=== PATIENT | female | born 1930 | race Caucasian/White ===

== ENCOUNTER 2017-11-04 20:19 | Emergency (ER) | payer MEDICARE, MEDICAID ==
[~2017-11-04] VITALS: Ht 154.9 cm; Wt 62.1 kg
[~2017-11-04 20:19] MED LIST: ASPIRIN325 PO; BENAZEPRIL-HCT1 EA10 PO; CLONAZEPAM 1 MG1 M1 PO; CYCLOBENZAPRINE5 MG PO; HYDROCODONE-APA1 TA1 PO; IMDUR 30 MG TAB30 M1 PO; KLOR-CON 1010 MEQ PO; LASIX 20 MG TAB20 MG PO; LEVOTHYROXIN0.075 MG PO; LEVOTHYROXINE 0.1 MG PO; LOPRESSOR25 PO; MOTION SICKNESS25 M1 PO; NITROGLYCERIN0.4 MG SUBLING; NORVASC5 MG PO; PROBENECID500 MG PO; SORINE 80 MG TA80 M1 PO
[2017-11-04 20:29] VITALS: BP 169/83
[2017-11-04] MEDS ORDERED: SYNTHROID75 MCG PO (20:33)
[2017-11-04] MEDS ORDERED: HYDROCODONE-AP1 EAC6 PO (20:49)
[2017-11-04] MEDS ORDERED: KEFLEX500 M1 PO (20:49)
== END 2017-11-04 20:59 | disposition home or self-care (01) ==
LOC: M.ERS 20:19
DX: L60.8 Other nail disorders (principal); I10 Essential (primary) hypertension; E03.9 Hypothyroidism, unspecified; I25.2 Old myocardial infarction; Z90.710 Acquired absence of both cervix and uterus; Z88.8 Allergy status to other drugs, medicaments and biological substances

== ENCOUNTER 2018-02-01 13:48 | Inpatient (IN) | payer MEDICARE, MEDICAID ==
[~2018-02-01] VITALS: Ht 162.6 cm; Wt 69.8 kg
[~2018-02-01 13:48] MED LIST changes: +HYDROCODONE-AP1 EAC6 PO; +KEFLEX500 M1 PO; +SYNTHROID75 MCG PO
[2018-02-01 13:52] VITALS: BP 202/98
[2018-02-01 15:59] LABS: HEMATOCRIT 32.8 % (37.0-47.0); HEMOGLOBIN 10.6 gm/dL (12.0-15.0); MCH 30.1 pg (26.0-34.0); MCHC 32.3 g/dL (28.0-37.0); MCV 93.2 fL (80.0-100.0); MPV 7.6 fl. (7.2-11.1); NUCLEATED RBCS 0 /100WBC; PLATELET COUNT* 306 thou/uL (150-400); RBC 3.52 mil/uL (4.20-5.00); RDW-CV 15.1 % (10.5-14.5); WBC 13.5 thou/uL (4.0-11.0)
[2018-02-01 16:13] LABS: ABSOLUTE BASOPHILS 0.1 thou/uL (0.0-0.2); ABSOLUTE EOSINOPHILS 0.4 thou/uL (0.0-0.7); ABSOLUTE LYMPHOCYTES 1.2 thou/uL (0.8-5.3); ABSOLUTE MONOCYTES 0.4 thou/uL (0.0-1.2); ABSOLUTE NEUTROPHILS 11.3 thou/uL (1.6-8.1); PLATELET ESTIMATE ADEQUATE
[2018-02-01 16:17] LABS: CALCIUM 8.7 mg/dL (8.5-10.1); CREATININE 1.2 mg/dL (0.6-1.3); POTASSIUM 5.2 mmol/L (3.5-5.1)
[2018-02-01 16:22] LABS: ALBUMIN 3.1 g/dL (3.4-5.0); TOTAL BILIRUBIN 0.2 mg/dL (<0.1-1.0); TOTAL PROTEIN 6.1 g/dL (6.4-8.2)
[2018-02-01 18:06] VITALS: BP 108/61
[2018-02-01 18:30] VITALS: BP 85/47
[2018-02-01 20:00] VITALS: BP 90/47
[2018-02-02 00:19] VITALS: BP 111/71
--- NOTE | 2018-02-02 02:32 | NUR ---
ASSUMED CARE AT 1999, ASSESSMENT CHARTED. PATIENT ALERT/ORIENTED X4, RESTING IN BED. ON TELE, SR. ON ROOM AIR, NO SOB NOTED, SATS 93%. SL INTACT TO RIGHT AC, LEAKING, REMOVED WITH CATHETER INTACT. NEW IV STARTED TO RIGHT FOREARM, IVF INFUSING PER MAR. HORNER TO DD. DENIES NEEDS. STATES HAVING PAIN TO LEFT SIDE, MEDS PER MAR WITH PARTIAL RELIEF NOTED. BEDREST. NPO AFTER MIDNIGHT. PATIENT TURNED AND REPOSITIONED IN BED WITH PILLOWS Q2H. SCD PLACED TO RIGHT LEG. BED ALARM ON. CALL LIGHT WITHIN REACH, ENCOURAGED TO CALL FOR NEEDS.
[2018-02-02 03:52] VITALS: BP 115/61
[2018-02-02 05:10] LABS: HEMATOCRIT 24.8 % (37.0-47.0); MCH 30.5 pg (26.0-34.0); MCV 92.4 fL (80.0-100.0); MPV 7.9 fl. (7.2-11.1); RBC 2.69 mil/uL (4.20-5.00); RDW-CV 14.8 % (10.5-14.5); WBC 11.9 thou/uL (4.0-11.0)
[2018-02-02 05:19] LABS: APTT 26.1 Seconds (25.0-31.3); INR 1.2; PROTIME 12.1 Seconds (9.20-11.50)
[2018-02-02 05:23] LABS: HEMOGLOBIN 8.2 gm/dL (12.0-15.0)
[2018-02-02 06:14] LABS: ALBUMIN 2.8 g/dL (3.4-5.0); CALCIUM 8.2 mg/dL (8.5-10.1); CREATININE 1.4 mg/dL (0.6-1.3); MAGNESIUM 2.2 mg/dL (1.8-2.4); POTASSIUM 5.3 mmol/L (3.5-5.1); TOTAL BILIRUBIN 0.3 mg/dL (<0.1-1.0); TOTAL PROTEIN 5.5 g/dL (6.4-8.2)
--- NOTE | 2018-02-02 07:52 | NUR ---
DR. TAN IN ROOM TO SEE PATIENT. REPORT GIVEN TO ONCOMING NURSE. BED ALARM ON. WILL MONITOR.
[2018-02-02 08:00] VITALS: BP 128/66
--- NOTE | 2018-02-02 10:07 | EKG ---
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: AM : 1930 Requested By: Lizbeth Harrison Order Number: [id number] MD: Eliel Acharya Measurements Intervals [place] Rate: 76 P: 10 NC: 156 QRS: -21 QRSD: 109 T: 89 QT: 414 QTc: 466 Interpretive Statements Sinus rhythm nonspecific st changes Compared to ECG 04/02/2017 07:52:46 Left ventricular hypertrophy no longer present Electronically Signed On 02-02-2018 10:06:50 CDT by Elile Acharya [email or web address] <ELECTRONICALLY SIGNED> By: Eliel Acharya MD, [facility] 02/02/18 1006 1558 1558 Eliel Acharya MD, [facility] /EPI
--- NOTE | 2018-02-02 12:03 | NUR ---
Pt out of room for surgery, will f/u later
--- NOTE | 2018-02-02 13:58 | NUR ---
ASSUMED PT CARE AT 0700 PT IS ALERT AND ORIENTED X 4 PT IS A FALL RISK BED ALARM IS ON, PT DENIES PAIN OR SOA, PT LEFT ARM AND LEG IS SPLINTED PT IS SCHEDULED FOR SURGERY PT ANXIOUS ABOUT SURGERY ONCE PHYSICIAN TALKED WITH PT SHE WAS MORE WILLING TO HAVE SURGERY PT HAS 1 UNIT OF BLOOD ORDERED TO START BEFORE SURGERY OBTAINED CONSENT AND ONTAINED BLOOD FROM BLOOD BANK HAD ANOTHER NURSE CHECK BLOOD AND DOCUMENTATION SURGERY CAME FOR PT AND STARTED BLOOD DOWN IN PACU, WILL CONTINUE TO MONITOR
[2018-02-02 14:51] VITALS: BP 105/68; BP 116/78; BP 117/73; BP 118/74; BP 153/73
--- NOTE | 2018-02-02 17:01 | CON ---
[address] [address] CONSULTATION Name: TORIN GARZA Room: [address] IN M.R.#: [id number] Admission: 02/01/18 Attend Phys: Vince Curry Discharge: Date of : [birth year] Report #: [id number] THIS REPORT FOR: //name// CC: Lobo Baker [facility] physician/PCP Colin Rizzo DATE OF SERVICE: 02/02/2018 HISTORY OF PRESENT ILLNESS: The patient is an 87-year-old white female who I was asked to see in the hospital today for preoperative evaluation. I initially saw the patient in March 2017. She has a long history of a heart murmur, previously followed at [facility]. She apparently had a heart catheterization and was found to have mild coronary artery disease with evidence of aortic stenosis. She apparently has refused aortic valve replacement in the past. However, she is not very active because of her age and uses a walker. She was actually admitted to [facility] in March 2017, with palpitations and found to be in a narrow complex tachycardia. She did have an echocardiogram in March 2017, that showed left ventricular hypertrophy, ejection fraction greater than 60%, evidence of severe aortic stenosis with a peak gradient across the aortic valve of 68 mmHg. However, she was not felt to be an operative candidate because of her advanced age. She actually returned to see my nurse practitioner in November 2017. The patient noted occasional lightheadedness. The patient denied any recent shortness of breath, palpitations, or syncope. She does have occasional chest pain. Yesterday, the patient was at home when she fell, apparently tripped on the carpet. She then struck the left side of her face and body in the shower. She was brought here to [facility]. She was found to have a fracture of her left arm and left leg. She is in need of surgery. I was asked to see her for preoperative evaluation. PAST MEDICAL HISTORY: Significant for hysterectomy, cataract extraction, and hypertension. CURRENT MEDICATIONS: Consists of aspirin, Flexeril, Lasix, hydrocodone, Imdur, Synthroid, meclizine, potassium, sotalol, and Lotensin. ALLERGIES: She has a previous intolerance to QUININE. FAMILY HISTORY: Her mother had a heart attack. SOCIAL HISTORY: She is , lives with son in [place]. No smoking or alcohol abuse. REVIEW OF SYSTEMS: She has had no history of stroke, asthma, peptic ulcer disease, liver disease. She has chronic kidney disease. [place] [address] CONSULTATION Name: TORIN GARZA Room: [address] IN [facility].#: [id number] Admission: 02/01/18 Attend Phys: Vince Curry Discharge: Date of : [birth year] Report #: [id number] psychiatric illness. She does have arthritis. PHYSICAL EXAMINATION: GENERAL: Revealed an elderly frail appearing female, lying in bed, she appeared in no distress. VITAL SIGNS: She had a blood pressure of 110/70, pulse is 80, and she is afebrile. HEENT: She was anicteric. Conjunctivae are pink. Mucous members are dry. NECK: Veins do not appear distended. CHEST: Clear to auscultation. HEART: Regular rate and rhythm, grade 4 mid peak systolic ejection murmur at left sternal border. ABDOMEN: Soft, nontender. EXTREMITIES: The left lower extremity had a cast. The right lower extremity had no edema. No dorsalis pedis pulse could be palpated. SKIN: Cool and dry. NEUROLOGIC: Nonfocal. LYMPH: No adenopathy. MUSCULOSKELETAL: She did have some deformity of the interphalangeal joints of her hands. ECG showed a sinus rhythm, early transition, nonspecific ST-segment changes. Her lab work, sodium 140, BUN 28, creatinine 1.4. Her albumin is 2.8. BNP . TSH last summer was 8.6, T4 is 1.0. White blood cell count , her hemoglobin on admission was 10.6, hematocrit 32.8. 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 IMPRESSION AND RECOMMENDATIONS: 1. Severe aortic stenosis. The patient is not an operative candidate because of her advanced age. 2. History of supraventricular tachycardia. The patient is on sotalol. 3. Hypertension. The patient has been on a beta peter and calcium peter. 4. Fracture. The patient in need of surgery. She will be at risk for cardiac complications to surgery due to her advanced age. History of aortic stenosis and history of atrial arrhythmias. I would recommend no further cardiac evaluation or change in cardiac medications prior to surgery. 5. Chronic kidney disease. <ELECTRONICALLY SIGNED> By: Eliel Acharya MD, FACC 02/02/18 1701 0802 [id number] Acharya MD, FACC /nt
[2018-02-02 20:00] VITALS: BP 127/71
[2018-02-02 21:30] LABS: HEMATOCRIT 32.4 % (37.0-47.0)
[2018-02-02 21:31] LABS: HEMOGLOBIN 10.8 gm/dL (12.0-15.0)
[2018-02-03] VITALS: BP 108/56
[2018-02-03 04:00] VITALS: BP 125/61
--- NOTE | 2018-02-03 05:00 | NUR ---
ASSUMED CARE AT 1999, ASSESSMENT CHARTED. PATIENT ALERT/ORIENTED X4, FORGETFUL AT TIMES, RESTING IN BED. PLACED ON TELE, SR. WEARING OXYGEN 2L/NC, NO SOB NOTED, SATS PER CONT PULSE OX: 100%. SL INTACT TO RIGHT AC, LEAKING, REMOVED WITH CATHETER INTACT. NEW IV PLACED TO RIGHT FOREARM, IVF INFUSING PER MAR. REMAINS ON BEDREST. SPLINT TO LEFT ARM. ALISON WRAP/IMMOBILIZER TO LEFT LEG, REMOVED FOR SKIN ASSESSMENT AND REAPPLIED. SCD TO RIGHT LEG. HORNER TO DD. PATIENT TURNED AND REPOSITIONED IN BED Q2H WITH PILLOWS. STATES HAVING PAIN TO LEFT SIDE, MEDS PER MAR WITH RELIEF NOTED. BED ALARM ON. CALL LIGHT WITHIN REACH, ENCOURAGED TO CALL FOR NEEDS.
[2018-02-03 05:15] LABS: HEMATOCRIT 27.7 % (37.0-47.0); HEMOGLOBIN 9.3 gm/dL (12.0-15.0); MCH 30.9 pg (26.0-34.0); MCHC 33.7 g/dL (28.0-37.0); MCV 91.8 fL (80.0-100.0); MPV 8.5 fl. (7.2-11.1); RBC 3.02 mil/uL (4.20-5.00); RDW-CV 14.6 % (10.5-14.5); WBC 13.4 thou/uL (4.0-11.0)
[2018-02-03 05:28] LABS: ALBUMIN 2.4 g/dL (3.4-5.0); CALCIUM 7.6 mg/dL (8.5-10.1); CREATININE 1.8 mg/dL (0.6-1.3); TOTAL BILIRUBIN 0.3 mg/dL (<0.1-1.0); TOTAL PROTEIN 5.1 g/dL (6.4-8.2)
--- NOTE | 2018-02-03 06:43 | NUR ---
ORTHO ON FLOOR AND IN ROOM TO SEE PATIENT. ORTHO STRETCHED LEFT ARM SPLINT. BED ALARM ON. WILL MONITOR.
[2018-02-03 08:00] VITALS: BP 131/71
[2018-02-03 11:45] VITALS: BP 117/92
--- NOTE | 2018-02-03 14:56 | NUR ---
CM ASSESSMENT: Spoke with Pt's son at bedside. Son stated that Pt seems a little confused today, normally A&O. Pt normally resides at home with son. Son does cooking, cleaning and driving. Pt is able to perform some of her IADLs, with supervision. Pt normally uses a walker for mobility. No hx of HH or SNF. Discussed disposition and probably need for skilled at dc, son in agreement. CM provided Pt with skilled facility list, he will let CM know tomorrow which facility he would like Pt to go to. Following.
[2018-02-03 15:56] VITALS: BP 11/48
--- NOTE | 2018-02-03 16:04 | NUR ---
ASSUMED PT CARE AT 0700 PT IS ALERT AND ORIENTED X 4 PT DENIES PAIN OR SOA, PT IS ON 2L/NC DENIES SOA PT HAD SURGERY ON LEFT LEG AFTER FX ON 02/02/18 PT IS SR ON THE MONITOR, FLUIDS DISCONTINUED, PT HAS NOT NEEDED PAIN MEDS LEFT HAND IS BRUISED AND SWOLLEN ORTHO LOOSENED CAST, PHYSICAL THERAPY WORKED WITH PT GOT UP TO THE CHAIR PT IS SLEEPING IN CHAIR WHEN WOKEN PT WAS CONFUSED AND GARBLED SPEECH NOTIFIED PHYSICIAN WHO SAW PT STATED " IT DOES NOT LOOK LIKE A STROKE" ORDERED ABGS, REASSESSED PT AROUND 1600 PT IS MORE AWAKE AND ORIENTED X 4 PT IS TURNED Q 2 HOURS ORTHO SAW PT AROUND 1530 AND LOOSED CAST ON LEFT ARM MORE STATES IF CONTINUES TO SWELL NAY CHANGE SPLINT TO BRACE WILL CONTINUE TO MONITOR
[2018-02-03 16:28] LABS: BE -4.8 mmol/L (-2 to +3); HCO3 20.3 mmol/L (22.0-26.0); PCO2 37.5 mmHg (35.0-45.0); PO2 97.7 mmHg (75.0-100.0); pH 7.352 (7.340-7.450)
[2018-02-03 20:00] VITALS: BP 113/58
[2018-02-04] VITALS (7 sets, daily range): BP systolic 113–139; BP diastolic 52–66
--- NOTE | 2018-02-04 00:03 | NUR ---
ASSUMED PT CARE AT 19:15 PT IS ALERT AWAKE ORIETED X 3 FORGETFULL . VITAL SIGNS WITHIN NORMAL LIMIT . ASSESSEMENT PERFOREMED. CAST IN L LOWER EXTREMITY REMOVED. NO PRESSURE, DISCOLORATION NOTICED. L HAND IS PALE AND COOL, EDEMATOUS +4 TO TOUCH PT STATES IT IS NOT HURTING AND SLING HAS BEEN LOOSE DURING THE DAY.COMPLAIN OF PAIN IN L LOWER EXTREMITY . PAIN MED HAS BEEN ADMINISTERED PT IS NOW RESTING IN BED. SATURATION O2 IS 100 AT 2 L NC WILL CONTINUE TO MONITOR
[2018-02-04 03:00] LABS: HEMATOCRIT 22.6 % (37.0-47.0); HEMOGLOBIN 7.7 gm/dL (12.0-15.0); MCH 31.6 pg (26.0-34.0); MCV 92.9 fL (80.0-100.0); MPV 8.2 fl. (7.2-11.1); RBC 2.44 mil/uL (4.20-5.00); RDW-CV 14.7 % (10.5-14.5); WBC 8.8 thou/uL (4.0-11.0)
[2018-02-04 03:09] LABS: ALBUMIN 2.2 g/dL (3.4-5.0); CALCIUM 7.8 mg/dL (8.5-10.1); CREATININE 1.4 mg/dL (0.6-1.3); POTASSIUM 4.3 mmol/L (3.5-5.1); TOTAL BILIRUBIN 0.3 mg/dL (<0.1-1.0)
--- NOTE | 2018-02-04 04:00 | NUR ---
PATIENT NOTED TO BE OFF RUG CLEANER HELPER, STAFF IN ROOM. PATIENT REMOVED GOWN, HEART MONITOR, SPLINT TO LEFT ARM (HAD IT SITTING ON BEDSIDE TABLE), OXYGEN AND IV. SPLINT REPLACED. GOWN, OXYGEN AND RUG CLEANER HELPER PLACED ON. NEW IV PLACED TO RIGHT FOREARM. MITTEN PLACED TO RIGHT HAND. BED ALARM ON. WILL MONITOR.
--- NOTE | 2018-02-04 06:43 | NUR ---
ORTHO IN ROOM TO SEE PATIENT. ORTHO RE-WRAPPED LEFT ARM IN SPLINT, ELEVATED AND SAID TO ICE PRN SWELLING. WILL CONTINUE TO MONITOR.
--- NOTE | 2018-02-04 07:30 | NUR ---
RECIEVED REPORT. ASSUMED CARE OF PT AT 0730. VSS. CARDIAC MONITORING IN PLACE SR WITH BBB. AM ASSESSMENT AND VITALS COMPLETED CHARTED. PT ALERT AND ORIENTEDX4 THIS AM PT FORGETFUL. PT ON 2L PER NC WITH O2 SAT AT 98% IV SALINE LOCKED. PT'S LEFT ARM SPLINTED AND ELEVATED WITH PILLOWS ICE PACK APPLIED THIS AM. NOTED BRUISING/EDEMA CAP REFILL<3 SEC. PT ABLE TO MOVE FINGERS. IMMOBILIZER IN PLACE TO PT'S LEFT LEG. PT ABLE TO MOVE TOES. PT IS NONWT BEARING TO UPPER AND LOWER LEFT EXTERMITIES. PT REPORTS PAIN HAS IMPROVED. PT IS EAGER AND ANXIOUS TO WORK WITH THEARPY. DISCUSSED PLAN WITH PT AND PT'S SON FOR SNF/REHAB DISCHARGE. THEY COMMUNICATE UNDERSTANIDNG. CALL LIGHT IS WITHIN REACH. BED ALARM ON FOR PT SAFETY. WILL CONTINUE TO MOTNIOR FOR DURATION OF SHIFT.
--- NOTE | 2018-02-04 10:12 | EKG ---
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: : 1930 Requested By: Jeffrey Castillo Order Number: [id number] Marito MD: Eliel Acharya Measurements Intervals [place] Rate: 96 P: 0 [place]: 185 QRS: -17 QRSD: 113 T: 148 QT: 343 QTc: 434 Interpretive Statements atrial fibrillation LVH with secondary repolarization abnormality Compared to ECG 02/01/2018 15:58:53 Atrial fibrillation noted Left ventricular hypertrophy now present Electronically Signed On 02-04-2018 10:12:30 CDT by Eliel Acharya [email or web address] <ELECTRONICALLY SIGNED> By: Eliel Acharya MD, [facility] 02/04/18 1012 1750 1750 Eliel Acharya MD, [facility] /EPI
--- NOTE | 2018-02-04 10:19 | EKG ---
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
--- NOTE | 2018-02-04 11:26 | NUR ---
Spoke with son this morning about disposition, still has not decided on skilled facility, son suppose to contact CM this afternoon with skilled facility preferences. Following.
--- NOTE | 2018-02-04 13:48 | NUR ---
SPOKE WITH SON,GRACIELA, ABOUT SNF WHERE HE WOULD WANT HIS MOM TO GO AT DISCHARGE. HE HAD QUESTIONS ABOUT [facility] AND [facility]. HE SAID HE WILL GO SEE BOTH AND CALL CM BACK BEFORE 4PM TODAY. WILL AWAIT HIS CALL BACK AND MAKE REFERRAL OF HIS CHOICE.
--- NOTE | 2018-02-04 16:30 | NUR ---
[facility] CALLED CM BACK. SHE HAD RECEIVED REFERRAL AND WILL ACCEPT PT.AT DISCHARGE.
--- NOTE | 2018-02-04 17:07 | NUR ---
VSS. CARDIAC MONITORING IN PLACE WITH NO CHANGES THIS SHIFT. PT SOMEWHAT PROGRESSING TOWARDS GOALS. PT HAS INTERMITTENT CONFUSION THIS SHIFT-APPEARS TO POSSIBLY BE RELATED TO PAIN MEDS. WILL SUGGEST TO NOC SHIFT TO TRY TYLENOL IF POSSIBLE. PT WAS MORE DROWSY AND CONFUSED AFTER PAIN MED ADMINISTRATION THIS AM. PT WAS UP TO CHAIR WITH MAXIMUM ASSISTANCE TO CHAIR. HORNER REMOVED THIS SHIFT. PT'S SON REQUESTED TO KEEP HORNER IN EDUCATED PROVIDED REGARDING RISKS FOR INFECTION. IMMOBILIZER IN PLACE TO LLE. SPLINT REMIANS IN PLACE TO LUE. ICE PACKS PROVIDED NEEDED. PLAN FOR PT TO D/C TO SNF. CALL LIGHT IS WITHIN REACH. WILL CONTINUE TO MONITOR FOR DURATION OF SHIFT.
--- NOTE | 2018-02-05 03:14 | NUR ---
ASSUMED PT CARE AT 19;15 RECEIVED REPORT FROM NURSE. PT IS ALERT AWAKE ORIENTED X 3 FORGETFUL. VITAL SIGNS WITHIN NORMAL LIMIT .SINUS RYTHM ON MOMITOR ASSESSMENT PERFOREMED. SPLINT IN PLACE IN L. FOREARM. L FINGERS ARE SWOLLEN ,PT STATES THAT THERE IS NO DISCOMFORT OR PAIN AT THE SPLINT SITE. L LOWER EXTRREMITY CAST REMOVED. NO PRESSURE NOTICED. COMPLAIN OF PAIN LEVEL OF 5, TYLENOL WAS ADMINISTERED. PAIN NOT RELIEVED GET NEW ORDER FOR TRAMADOL FROM DR MUSTAFA. DOES NT WANT TO GIVE HYDROCODONE BCZ PT SEEMS CONFUSED AND A LITTLE SEDATED. SINUS RYTHM ON MONITOR, PAIN WAS CONTROLLED AND PT IS NOW SLEEPING.
[2018-02-05 04:00] VITALS: BP 119/54
[2018-02-05 04:44] LABS: HEMATOCRIT 20.5 % (37.0-47.0); HEMOGLOBIN 7.1 gm/dL (12.0-15.0); MCH 32.1 pg (26.0-34.0); MCHC 34.8 g/dL (28.0-37.0); MCV 92.3 fL (80.0-100.0); MPV 9.2 fl. (7.2-11.1); RBC 2.23 mil/uL (4.20-5.00); RDW-CV 14.8 % (10.5-14.5); WBC 6.8 thou/uL (4.0-11.0)
--- NOTE | 2018-02-05 06:00 | NUR ---
ORTHO ON FLOOR, UPDATED ON STATUS. PATIENT HAS NOT VOIDED THIS SHIFT, BLADDER SCANNED AT THIS TIME AND NOTED 417ML URINE IN BLADDER. DR. JENKINS ON FLOOR, STATES TO STRAIGHT CATH X1 NOW. PATIENT DENIES PAIN. WILL MONITOR.
[2018-02-05 07:14] LABS: ALBUMIN 2.1 g/dL (3.4-5.0); ALKALINE PHOSPHATASE 46 U/L (46-116); ANION GAP 6 mmol/L (7-16); BUN 26 mg/dL (7-18); CHLORIDE 106 mmol/L (98-107); CO2 27 mmol/L (21-32); CREATININE 0.9 mg/dL (0.6-1.3); GLUCOSE 86 mg/dL (70-99); POTASSIUM 3.8 mmol/L (3.5-5.1); SGOT 15 U/L (15-37); SODIUM 139 mmol/L (136-145); TOTAL BILIRUBIN 0.6 mg/dL (<0.1-1.0); TOTAL PROTEIN 4.9 g/dL (6.4-8.2)
[2018-02-05 07:15] LABS: SGPT < 6 U/L (30-65)
[2018-02-05 08:23] VITALS: BP 104/47
--- NOTE | 2018-02-05 08:42 | NUR ---
RECEIVED REPORT AND ASSUMED CARE AT 0730. VSS. PT DENIES ANY COMPLAINTS OF PAIN. PT IS UP WITH MAX ASSIST, NWB LEFT LEG. PT ON RA. LEFT ARM IN SPLINT, EDEMOUS IN FINGERS WITH BRUISING. CAP REFILL <3. PT A&O X3. DISCUSSED PLAN OF CARE WITH PT, ASSESSMENT COMPLETED CHARTED. BED IN LOWEST POSITION, CALL LIGHT WITHIN REACH, BED ALARM ON. WILL CONTINUE TO MONITOR FOR REMAINDER OF THE SHIFT
--- NOTE | 2018-02-05 09:33 | EKG ---
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: ELIAZAR : 1930 Requested By: Eliel Acharya Order Number: [id number] Reading MD: Eliel Acharya Measurements Intervals [place] Rate: 91 P: 36 [place]: 209 QRS: -17 QRSD: 111 T: 121 QT: 377 QTc: 464 Interpretive Statements Sinus rhythm Probable LVH with secondary repol abnrm Compared to ECG 02/04/2018 08:17:45 Ventricular premature complex(es) no longer present Electronically Signed On 02-05-2018 9:33:15 CDT by Eliel Acharya [email or web address] <ELECTRONICALLY SIGNED> By: Eliel Acharya MD, [facility] 02/05/18 0933 0801 0801 Eliel Acharya MD, [facility] /EPI
[2018-02-05 12:00] VITALS: BP 105/55
--- NOTE | 2018-02-05 16:08 | NUR ---
Updated Doris at that Pt is not ready to dc today. will have a bed available tomorrow if Pt ready to dc.
[2018-02-05 16:45] VITALS: BP 106/58; BP 111/59; BP 121/53; BP 126/60
--- NOTE | 2018-02-05 17:15 | NUR ---
VSS. CARDIAC MONTIORING IN PLACE WITH NO CHANGES THIS SHIFT. PT REMAINS ON RA. PT PROGRESSING TOWARDS GOALS. PT MROE AWAKE AND ALERT THROUGHOUT THIS SHIFT. PT'S PAIN WELL MANAGED WITH PO PAIN MEDS. PT IS UP TO CHAIR WITH MAXIMUM ASSISTANCE X2. PT REMIANS NONWT BEARING TO LEFT UPPER AND LOWER EXTREMITIES. BLOOD TRANSFUSION STARTED THIS EVENING. PLAN FOR PT TO D/C TO SNF [facility]. PT GIVEN STOOL SOFTNER THIS EVENTING NO BM T-2 DAYS.
[2018-02-05 19:06] VITALS: BP 126/60
[2018-02-05 20:22] VITALS: BP 130/68
[2018-02-06] VITALS: BP 125/58
[2018-02-06 04:00] VITALS: BP 110/56
[2018-02-06 05:46] LABS: HEMOGLOBIN 8.5 gm/dL (12.0-15.0); MCH 29.4 pg (26.0-34.0); MCHC 33.8 g/dL (28.0-37.0); MPV 8.3 fl. (7.2-11.1); RBC 2.88 mil/uL (4.20-5.00); RDW-CV 19.5 % (10.5-14.5); WBC 6.5 thou/uL (4.0-11.0)
[2018-02-06 05:49] LABS: MCV 86.9 fL (80.0-100.0)
[2018-02-06 06:05] LABS: ALBUMIN 1.9 g/dL (3.4-5.0); CALCIUM 8.1 mg/dL (8.5-10.1); CREATININE 0.7 mg/dL (0.6-1.3); POTASSIUM 3.9 mmol/L (3.5-5.1); TOTAL BILIRUBIN 0.8 mg/dL (<0.1-1.0); TOTAL PROTEIN 4.9 g/dL (6.4-8.2)
--- NOTE | 2018-02-06 08:23 | NUR ---
PT IS ABLE TO COMMUNICATE HER NEEDS TO STAFF EFFECTIVELY. CURRENT PAIN MEDICATION REGIMEN HAS BEEN ADEQUATE FOR CONTROLLING HER PAIN UP TO THIS TIME. LEFT WRIST SPLINT PATENT; LEFT LEG SURGICAL DRESSING C/D/I AND LEG IMMOBILIZER IS PATENT UP TO THIS TIME. PT HAS HAD SOME URINARY RETENTION ISSUES; PT HAS HAD SOME INCONTINENT VOIDS OVERNIGHT AND WAS STRAIGHT CATHED ONCE, ACCORDING TO THE POST HORNER REMOVAL PROTOCOL; TOLERATED WELL. CODE STATUS IS DNR. POSSIBLE D/C TODAY TO A SKILLED FACILITY.
[2018-02-06 08:36] VITALS: BP 139/70
--- NOTE | 2018-02-06 09:47 | NUR ---
RECEIVED REPORT AND ASSUMED CARE AT 0730. VSS. CARDIAC MONITORING IN PLACE. PT REPORTS PAIN 7/10 IN LEFT KNEE. PRN PAIN MEDICATION ADMINISTERED. ASSESSEMENT COMPLETED CHARTED. PT A&O X 4, PT UP WITH MAX ASSIST, LEFT SIDE NWB. POSSIBLE D/C TO SNF TODAY. PT ON RA. BED IN LOWEST POSITION, CALL LIGHT WITHIN REACH, BED ALARM ON. WILL CONTINUE TO MONITOR FOR REMAINDER OF SHIFT
--- NOTE | 2018-02-06 11:24 | NUR ---
ORDERS RECEIVED FOR DC TO SNF. PT TO GO TO [facility]. MET WITH PT/SON. HE HAS APPT AT 330PM AND ASKED IF PT COULD GO PRIOR TO THAT. SPOKE WITH [facility], THEY CAN ACCEPT PT. SHE WILL NEED GO BY AMBULANCE, SET UP FOR 2PM. CHART COPIED. RN HAS NUMBER TO CALL REPORT.
[2018-02-06 11:55] VITALS: BP 124/59
[2018-02-06] MEDS ORDERED: NORVASC5 MG PO (13:09)
[2018-02-06] MEDS ORDERED: HYDROCODONE-AP1 EAC6 PO (13:11)
[2018-02-06] MEDS ORDERED: ELIQUIS2.5 MG PO (13:13)
[2018-02-06] MEDS ORDERED: ULTRAM 50MG TAB50 MG PO (13:14)
[2018-02-06] MEDS ORDERED: TYLENOL325 MG PO (13:23)
[2018-02-06] MEDS ORDERED: ONDANSETRON HCL4 M2 PO (13:24)
[2018-02-06 13:28] VITALS: BP 124/59
[2018-02-06] MEDS ORDERED: DULCOLAX5 MG PO (13:35)
--- NOTE | 2018-02-06 14:22 | NUR ---
DISCHARGE ORDERS COMPLETED BY AND PLACED IN CHART FOR DC TO SNF. PAPERWORK COMPLETED BY NURSING. NEW PRESCRIPTIONS SENT WITH PAPERWORK. REPORT CALLED TO NURSE AT SNF.VSS. IV AND CARDIAC MONITORING DISCONTINUED. WOUND DISCHARGE PICTURE COMPLETED. PT DENIES COMPLAINTS OF PAIN. ALL BELONGINGS GATHERED AND SENT WITH PT SON WHO IS MEETING PT AT SNF. PT TRANSFERED BY AMBULANCE TO SNF.
--- NOTE | 2018-02-06 14:28 | EKG ---
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1930 Requested By: Eliel Acharya Order Number: [id number] Reading MD: Anish Ramirez Measurements Intervals [place] Rate: 93 P: 51 [place]: 203 QRS: -20 QRSD: 118 T: 125 QT: 387 QTc: 482 Interpretive Statements Sinus rhythm LVH with IVCD and secondary repol abnrm Minimal ST elevation, inferior leads Compared to ECG 02/05/2018 08:01:37 Intraventricular conduction delay now present ST (T wave) deviation now present Electronically Signed On 02-06-2018 14:28:41 CDT by Anish Ramirez [email or web address] <ELECTRONICALLY SIGNED> By: Anish Ramirez MD, FAC 02/06/18 1428 5 5 Anish Ramirez MD, FAC /EPI
--- NOTE | 2018-02-17 13:30 | CON ---
[address] [address] CONSULTATION Name: TORIN GARZA Room: [address] IN .R.#: [id number] Admission: 02/01/18 Attend Phys: Vince Curry Discharge: 02/06/18 Date of : [birth year] Report #: [id number] THIS REPORT FOR: //name// CC: Eliel Achayra [facility] physician/PCP Colin Rizzo HISTORY OF PRESENT ILLNESS: This is an 87-year-old female admitted acutely for multiple fractures. She is status post fall from standing height in her house on 02/02/2018, sustaining a left distal femur fracture status post ORIF on 02/02/2018 and status post comminuted left distal radial fracture. She is now currently postop day 1, nonweightbearing on the left lower extremity and nonweightbearing on the left upper extremity. She has been evaluated by Physical Therapy, but there is limited data. She is max assist with bed mobility. Otherwise, Occupational Therapy and Speech and Language Pathology have not reported on the patient as of yet. The patient does have acute on chronic congestive heart failure, diastolic. Cardiology is following her. She did have an elevated BNP. She has severe aortic stenosis with a recent echo 03/2017, coronary artery disease, SVT, previous myocardial infarction, hypertension, hypothyroid, left facial contusion, anemia, currently transfused 2 units of packed red blood cells, moderate protein calorie malnutrition, acute kidney injury, currently on tele. Previous level of function sounds like modified independent with activities of daily living, utilizing a front-wheeled walker. Current level of function is limited at this time, but is max assist with bed mobility, otherwise therapy notes are pending. 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 ALLERGIES: ALLOPURINOL AND QUININE. Medications, laboratories and vital signs are all reviewed. Imaging was reviewed. FAMILY HISTORY: Cardiac disease. SOCIAL HISTORY: No tobacco, alcohol or illicit drug use. REVIEW OF SYSTEMS: A 14-point review of systems is done and is negative except as mentioned in HPI, specifically no fever, chest pain, shortness of breath, abdominal pain or distention. ASSESSMENT: [place] [address] CONSULTATION Name: TORIN GARZA Vince Room: [address]#: [id number] Admission: 02/01/18 Attend Phys: Vince Curry Discharge: 02/06/18 Date of : [birth year] Report #: [id number] 1. Status post fall. 2. Closed comminuted left distal femur fracture, status post open reduction and internal fixation on 02/02/2018, currently nonweightbearing. 3. Closed comminuted left distal radial and ulnar fracture, long-tong splint, nonweightbearing through the left upper extremity. 4. Acute on chronic diastolic congestive heart failure. Cardiology is following. 5. Severe aortic stenosis. 6. Coronary artery disease, supraventricular tachycardia and history of an myocardial infarction. 7. Hypertension, hypothyroid. 8. Anemia, status post transfusion of 2 units of packed red blood cells. 9. Moderate protein calorie malnutrition. 10. Acute kidney injury. PLAN: Continue with PT, OT, Speech, Language for further evaluations and recommendations. Given her previous level of function of utilizing a front-wheeled walker for ambulation with nonweightbearing on the left upper extremity, she may do better at a subacute level of rehabilitation. However, we would need to see how she does in the postoperative period with physical and occupational therapies together in order to make final determination. Thank you for the consultation and we will follow along the patient on a daily basis. <ELECTRONICALLY SIGNED> By: Ida Holman DO 02/17/18 1330 [id number] Holman DO /nt
--- NOTE | 2018-02-18 20:18 | OP ---
[address] [address] OPERATIVE REPORT Name: TORIN GARZA Room: [address]#: [id number] Admission: 02/01/18 Attend Phys: Vince Curry Discharge: 02/06/18 Date of : [birth year] Report #: [id number] THIS REPORT FOR: //name// CC: Eliel FRAZIER physician/PCP Colin Rizzo DICTATED BY: Daniel Crisostomo DATE OF SERVICE: 02/02/2018 PREOPERATIVE DIAGNOSIS: Closed left distal femur fracture, status post fall. POSTOPERATIVE DIAGNOSIS: Closed left distal femur fracture, status post fall. PROCEDURE: Open reduction and internal fixation of the left distal femur fracture utilizing Synthes distal femoral plate. SURGEON: Eliel Munoz DO, Resident. FLIGHT SERVICE AGENT: Daniel Crisostomo DO. SECOND FOOD SAMPLER: Nba Hinson DO and Vladimir Hazel DO. ESTIMATED BLOOD LOSS: 200 mL. SPECIMENS: None. DRAINS: None. ANTIBIOTICS: Two grams Ancef. COMPLICATIONS: None apparent. CONDITION: Stable, transferred to PACU. DISPOSITION: PACU to Med/Surg. PERTINENT HISTORY AND PHYSICAL: An 87-year-old female who had suffered a fall onto her left lower extremity. X-rays revealed a left distal femur fracture that was closed. We have recommended open reduction and internal fixation. We discussed the procedure to be performed in great detail including but not limited to the risks, benefits, potential complications and alternatives including but not limited to infection, blood loss, damage to the surrounding tissue, damage to blood vessels and nerves, continued pain, worsening pain, numbness, tingling, weakness, paralysis, loss of function, nonunion, malunion, [facility] [address] [place] [address] OPERATIVE REPORT Name: TORIN GARZA Room: [address] IN [facility].#: [id number] Admission: 02/01/18 Attend Phys: Vince Curry Discharge: 02/06/18 Date of : [birth year] Report #: [id number] intraoperative fracture, postoperative fracture, hardware loosening, hardware failure, painful hardware, hardware irritation, need for further surgery, persistent limp, stiffness, inability to ambulate, persistent use of assistive device, complications of anesthesia, thrombus, as well as other imponderables and she wishes to proceed. DESCRIPTION OF PROCEDURE: After written consent was obtained, the patient was transferred to the operative suite and placed in the supine position on the operative table. She was positioned on the Mukesh flat table. The left lower extremity was sterilely prepped and draped with ChloraPrep x 2. Timeout was performed. The correct patient, surgical site, procedure to be performed, antibiotics and surgeon were confirmed. Marking pen used to lizeth out correct location of the direct lateral incision. Incision made with a 10 blade knife, followed by dissection down to the superficial tissues. IT band was identified and divided with electrocautery. The vastus lateralis was elevated off the distal femur in the usual fashion. The fracture site was identified. Fracture hematoma was cleaned out. This is an extremely comminuted fracture pattern which was noted on x-rays as well as with direct visualization. We pulled traction as well as applied reduction maneuver. C-arm fluoroscopy was used to show correct length, alignment and rotation of the fracture at this point. A pin was passed across the lateral cortex into the distal fragment to hold the reduction. A Synthes 12-hole distal femoral plate was placed inside the wound and a K-wire was placed proximally and distally. C-arm fluoroscopy was used to confirm reduction as well as appropriate plate placement. A cortical screw was put in distally to suck the plate to the bone. This cortical screw was brought and put in proximally to suck the plate to the bone. Again, C-arm fluoroscopy showed good reduction and plate position. Length, alignment and rotation appeared to be correct. The distal side of the plate was filled with 5 locking screws through the variable angle guide. Next, 3 locking screws were inserted in the proximal aspect of the plate far enough away from the fracture to achieve good working length for a total of 3 locking screws and 1 cortical screw proximally. At this point, C-arm fluoroscopy was brought in, which showed excellent length, alignment, rotation and good reduction of the fracture and plate position. Final images were saved. The wound was thoroughly irrigated with saline. The IT band layer was closed with 0 Vicryl suture in [id number] interrupted fashion. The subcutaneous tissues were thoroughly irrigated and closed with a 2-0 Monocryl suture in an interrupted buried knot technique. Closure of the skin with jerry. Local anesthetic was then injected throughout the incision. Mepilex dressing used as sterile dressing, followed by an Shubham wrap. The knee was placed in a 3-D hinged knee brace 0-45 degrees. Anesthesia was reversed by the anesthesia team. The patient was transferred back to the transfer cart and transferred to Postanesthesia Care Unit in a stable condition. The patient appeared to tolerate this procedure well. No obvious complications apparent. Needle and sponge counts correct per the [place] [address] OPERATIVE REPORT Name: TORIN GARZA Vince Room: [address] IN [facility]#: [id number] Admission: 02/01/18 Attend Phys: Vince Curry Discharge: 02/06/18 Date of : [birth year] Report #: [id number] DISPOSITION: Nonweightbearing left lower extremity. Discharge back to the floor once stable per anesthesia. <ELECTRONICALLY SIGNED> By: Eliel Munoz DO 02/18/182017 1251 [id number] Munoz DO /nt
== END 2018-02-06 14:09 | DRG 480 ==
LOC: M.ERS 13:48 → M.TBA-ER 16:29 → M.2W 16:29
PROVIDERS: Nurse Practitioner Family; Orthopaedic Surgery; ADMIT Internal Medicine
PROC: 0QSCXZZ Reposition Left Lower Femur, External Approach (ICD-10-PCS; principal; 2018-02-01)
PROC: 0PSJXZZ Reposition Left Radius, External Approach (ICD-10-PCS; principal; 2018-02-01)
PROC: 0QSC04Z Reposition Left Lower Femur with Internal Fixation Device, Open Approach (ICD-10-PCS; 2018-02-02)
PROC: 30233N1 Transfusion of Nonautologous Red Blood Cells into Peripheral Vein, Percutaneous Approach (ICD-10-PCS; 2018-02-02)
DX: M80.052A Age-related osteoporosis with current pathological fracture, left femur, initial encounter for fracture (principal); N17.0 Acute kidney failure with tubular necrosis; I13.0 Hypertensive heart and chronic kidney disease with heart failure and stage 1 through stage 4 chronic kidney disease, or unspecified chronic kidney disease; E44.0 Moderate protein-calorie malnutrition; I47.1 Supraventricular tachycardia; I50.42 Chronic combined systolic (congestive) and diastolic (congestive) heart failure; M80.032A Age-related osteoporosis with current pathological fracture, left forearm, initial encounter for fracture; I25.10 Atherosclerotic heart disease of native coronary artery without angina pectoris; D64.9 Anemia, unspecified; I35.0 Nonrheumatic aortic (valve) stenosis; N18.9 Chronic kidney disease, unspecified; S00.83XA Contusion of other part of head, initial encounter; E03.9 Hypothyroidism, unspecified; W18.00XA Striking against unspecified object with subsequent fall, initial encounter; Y93.89 Activity, other specified; Y92.89 Other specified places as the place of occurrence of the external cause; Y99.8 Other external cause status; I25.2 Old myocardial infarction; Z68.26 Body mass index [BMI] 26.0-26.9, adult; Z90.710 Acquired absence of both cervix and uterus; Z79.82 Long term (current) use of aspirin; Z79.899 Other long term (current) drug therapy; Z88.8 Allergy status to other drugs, medicaments and biological substances; Z82.49 Family history of ischemic heart disease and other diseases of the circulatory system